=== PATIENT | male | born 1960 | race Caucasian/White ===

== ENCOUNTER 2020-01-29 07:55 | Observation (INO) | payer MEDICARE, MEDICAID ==
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
[2020-01-29] MEDS ORDERED: 50% Dextrose in Water 50 ML Syringe IVPUSH ONE ×4 (08:25→14:30)
[2020-01-29 09:10] LABS: ANION GAP 12.9 mEq/L (7-13); CHLORIDE,CL 102 mmol/L (98-107); SODIUM,NA 140 mmol/L (136-145)
[2020-01-29 09:16] LABS: ACETAMINOPHEN 0 ug/mL (10-30 (Therapeutic))
[2020-01-29] MEDS ORDERED: Potassium Chloride 10 MEQ in Premix Bag 1 BAG IV ONE (09:18)
--- NOTE | 2020-01-29 09:41 | CT ---
PROCEDURE INFORMATION: Exam: CT Head Without Contrast Exam date and time: 01/29/2020 9:30 AM Age: 60 years old Clinical indication: Other: Unresponsive TECHNIQUE: Imaging protocol: Computed tomography of the head without contrast. Radiation optimization: All CT scans at this facility use at least one of these dose optimization techniques: automated exposure control; mA and/or kV adjustment per patient size (includes targeted exams where dose is matched to clinical indication); or iterative reconstruction. COMPARISON: No relevant prior studies available. FINDINGS: Brain: No mass, intracranial hemorrhage, or brain edema. No transcortical defect. Normal cerebellum and brainstem. Cerebral ventricles: No ventriculomegaly. Bones/joints: Normal. Paranasal sinuses: The partly visualized right maxillary sinus is completely opacified. The pneumatized skull portions are otherwise normal. Mastoid air cells: Normal. Soft tissues: Unremarkable. IMPRESSION: 1. Normal brain. No acute intracranial abnormality. 2. Incompletely viewed right maxillary sinus disease.
[2020-01-29] MEDS: Dextrose 5%-0.9% NaCl 1,000 ML IV SCH ×2 (10:56→18:37)
[2020-01-29] MEDS ORDERED: Dextrose 10% in Water 500 ML IV ONE ×2 (13:12→18:54)
[2020-01-29 13:51] LABS: ANION GAP 12.4 mEq/L (7-13); CHLORIDE,CL 104 mmol/L (98-107); SODIUM,NA 142 mmol/L (136-145)
[2020-01-29] MEDS ORDERED: Potassium Chloride 10 MEQ Tab.ER PO ONE (16:53)
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
[2020-01-30] MEDS ORDERED: Dextrose 5% in Water 1,000 ML IV SCH (02:00)
[2020-01-30] MEDS: Dextrose 5%-0.9% NaCl 1,000 ML IV SCH (02:17)
[2020-01-30 08:12] VITALS: BP 142/69; PULSE 87
--- NOTE | 2020-01-30 08:26 | PN ---
DATE: 01/30/2020 SUBJECTIVE: The patient did well overnight. The patient's blood sugar remained stable. The patient denies any headache, chest pain, shortness of breath, nor any other complaints. Blood sugar this morning is 106. The patient did not have any hypoglycemic episodes overnight. OBJECTIVE: Vital Signs: Blood pressure is 140/48, pulse of 92, respirations 16, temperature of 99.2, saturation is 97% on room air. Heart: Regular rate and rhythm. Normal S1 and S2. No gallops. No rubs. Lungs: Equal bilaterally. No crackles, no wheezing. Abdomen: Soft, nontender. Bowel sounds positive. Extremities: Negative for any pedal edema. No calf tenderness. PLAN: We will discharge the patient to [facility] today. [facility] /[id number]
--- NOTE | 2020-01-30 08:52 | DISCH ---
FINAL DIAGNOSES: 1. Suicidal attempt with insulin. 2. Hypoglycemic reaction. 3. Hypokalemia. 4. Type 2 diabetes mellitus. 5. History of depression. 6. Peripheral neuropathy. BRIEF HISTORY OF PRESENT ILLNESS: Please see H and P. PERTINENT LABORATORY, X-RAY, AND OTHER TESTS ON ADMISSION: See H and P. HOSPITAL COURSE: The patient was admitted to observation. The patient was continued on D10 water and later on changed to D5 water, and IV fluids discontinued. The patient's blood sugar remained stable. There were no hypoglycemic reactions noted during the hospitalization. The patient was discharged to [facility]. [facility] /[id number]
[2020-01-30 10:38] LABS: SODIUM,NA 141 mmol/L (136-145)
[2020-01-30 10:39] LABS: ANION GAP 9.9 mEq/L (7-13); CHLORIDE,CL 103 mmol/L (98-107)
== END 2020-01-30 10:14 ==
LOC: DL.ED 07:55 → DL.MS 15:55 → DL.ED 16:29
PROVIDERS: ADMIT Internal Medicine; ATTEND Internal Medicine
DX: T14.91XA Suicide attempt, initial encounter (principal); R41.82 Altered mental status, unspecified; E87.6 Hypokalemia; E11.649 Type 2 diabetes mellitus with hypoglycemia without coma; I10 Essential (primary) hypertension; E78.5 Hyperlipidemia, unspecified; E11.42 Type 2 diabetes mellitus with diabetic polyneuropathy; F32.9 Major depressive disorder, single episode, unspecified; Z20.828 Contact with and (suspected) exposure to other viral communicable diseases; Z79.899 Other long term (current) drug therapy; Z79.4 Long term (current) use of insulin
CPT/HCPCS: 36415; 70450; 80048; 80053; 80305-QW; 80307; 82140; 82150; 82962; 83605; 83690; 83735; 84484; 85025; 87040; 93005; 96361; 96365; 96375; 96376; 99285-25; A9270-GY; G0378; J3480; J7042; U0002